=== PATIENT | male | born 1965 | race Caucasian/White ===

== ENCOUNTER → 2019-02-23 | Outpatient (CLI) | payer BC ==
--- NOTE | 2019-02-23 23:35 | NUR ---
parxetine 37.5 mg,jacqueline 180 mg,velvet biflex,pt takes 2 more meds tech cannot read handwriting Addendum: 02/23/19 at 2350 by ANTONY REYEZ Amended: Links added.
== END | disposition home or self-care (01) ==
LOC: SLP 20:44
PROVIDERS: ATTEND Internal Medicine
DX: G47.33 Obstructive sleep apnea (adult) (pediatric) (principal)
CPT/HCPCS: 95811